=== PATIENT | female | born 1970 | race Caucasian/White ===

== ENCOUNTER 2019-10-31 08:49 | Outpatient (CLI) | payer BC, SELFPAY ==
--- NOTE | 2019-10-31 | US_ITS ---
WS: [id number] RIGHT UPPER QUADRANT ULTRASOUND HISTORY: RIGHT UPPER QUADRANT PAIN COMPARISON: None available. Liver: 15.5 cm in length. Normal size and echogenicity with no intrahepatic dilatation. No mass. Gallbladder: Normally distended gallbladder with no stones or wall thickening. CBD: 1.8 mm Pancreas: Normal size and echogenicity. Right kidney: 9.3 cm in length. Normal echogenicity with no mass or hydronephrosis. Aorta and IVC: Unremarkable. No ascites. US/US abdomen limited [id number] IMPRESSION: Normal RIGHT upper quadrant ultrasound.
== END 2019-10-31 08:50 | disposition home or self-care (01) ==
LOC: RADWPI 09:33
PROVIDERS: PCP Family Medicine; Visit Provider Nurse Practitioner Family
DX: Z76.89 Persons encountering health services in other specified circumstances (principal)

== ENCOUNTER 2019-11-21 07:48 | Outpatient (CLI) | payer BC, SELFPAY ==
--- NOTE | 2019-11-21 07:54 | NM_ITS ---
WS: [id number] NM hepatobiliary w phar* [id number] REASON FOR EXAM: RUQ PAIN TECHNICAL: 8.1 mCi technetium 99m mebrofenin IV. FINDINGS: The gallbladder visualizes well at 20 minutes. Patient was given 8 ounces of ensure plus the ejection fraction was 63%. NM/NM hepatobiliary w phar* [id number] IMPRESSION: Normal appearance of the gallbladder Normal ejection fraction
== END 2019-11-21 07:49 | disposition home or self-care (01) ==
LOC: NM 07:52
PROVIDERS: Family Provider Family Medicine; PCP Family Medicine; Visit Provider Nurse Practitioner Family
DX: R10.11 Right upper quadrant pain (principal)
CPT/HCPCS: 78227; A9537

== ENCOUNTER → 2020-06-12 09:23 | Outpatient (BNVA) | payer BC, SELFPAY | PROVIDERS: Family Provider Family Medicine; PCP Family Medicine; Visit Provider Obstetrics & Gynecology | DX: Z01.419 Encounter for gynecological examination (general) (routine) without abnormal findings (principal) | CPT/HCPCS: 80061; 83036; 84443 ==

== ENCOUNTER → 2020-06-25 09:20 | Outpatient (BNVA) | payer BC, SELFPAY | PROVIDERS: Family Provider Family Medicine; PCP Family Medicine; Visit Provider Obstetrics & Gynecology | DX: N93.9 Abnormal uterine and vaginal bleeding, unspecified (principal); Z78.0 Asymptomatic menopausal state | CPT/HCPCS: 76830; 83001; 84450 ==

== ENCOUNTER → 2021-10-13 11:33 | Outpatient (BNVA) | payer BC, SELFPAY | PROVIDERS: PCP Family Medicine; Visit Provider Obstetrics & Gynecology | DX: Z12.4 Encounter for screening for malignant neoplasm of cervix (principal) | CPT/HCPCS: 87624 ==

== ENCOUNTER 2022-02-18 11:06 | Outpatient (CLI) | payer BC, SELFPAY ==
--- NOTE | 2022-02-18 11:16 | MM_ITS ---
WS: [id number] BILATERAL 3D TOMOSYNTHESIS DIGITAL SCREENING MAMMOGRAPHY WITH CAD CLINICAL INFORMATION: Z12.39 - Encounter for other screening for malignant neop... HISTORY: Screening mammogram. No current complaints. COMPARISON: November 16, 2019 and TECHNIQUE: Bilateral CC and MLO views. FINDINGS: Bilateral breast implants appear intact and unchanged. Scattered fibroglandular densities bilaterally. A few incidental punctate calcifications. Nodular chuckie ast tissue subareolar LEFT breast appears unchanged over multiple prior examinations. No suspicious f ocal mass, asymmetry, calcifications, or architectural distortion. No evidence of malignancy. MM/[id number] IMPRESSION: BI-RADS: 2-Benign FOLLOW UP: 1 Year Follow-up Recommend return to annual screening mammography.
== END 2022-02-18 11:07 | disposition home or self-care (01) ==
PROVIDERS: PCP Family Medicine; Visit Provider Obstetrics & Gynecology
DX: Z12.39 Encounter for other screening for malignant neoplasm of breast (principal); Z12.31 Encounter for screening mammogram for malignant neoplasm of breast
CPT/HCPCS: 77063; 77067

== ENCOUNTER → 2022-10-16 09:12 | Outpatient (BNVA) | payer BC, SELFPAY | PROVIDERS: PCP Family Medicine; Visit Provider Obstetrics & Gynecology | DX: N95.0 Postmenopausal bleeding (principal) | CPT/HCPCS: 88305 ==

== ENCOUNTER → 2022-11-02 11:16 | Outpatient (BNVA) | payer BC, SELFPAY | PROVIDERS: PCP Family Medicine; Visit Provider Obstetrics & Gynecology | DX: N95.0 Postmenopausal bleeding (principal) | CPT/HCPCS: 76830 ==

== ENCOUNTER 2022-11-12 06:41 | Day surgery (SDC) | payer BC, SELFPAY ==
[2022-11-11 08:51] VITALS: BMI 21.1
--- NOTE | 2022-11-11 09:04 | ANES.PREANE2 ---
Pre-Anesthetic Assessment Height/Weight: Height 1.7 m Weight 61.235 kg Operation Date: 11/12/22 08:00 Proposed Procedures p Hysteroscopy, dilation and curettage with Myosure [id number], N93.9,N95.0(Not Applicable) - Chito Phillips MD s Dilation And Curettage (D&C)(Not Applicable) - Chito Phillips MD Familial anesthetic complications: Epidural (passed out d/t bradycardia) Social No alcohol and No tobacco Exam alert, oriented x 3, clear to auscultation bilaterally and regular rate & rhythm Airway Mallampati: Class II Dentition: full Pulmonary None reported CV/HEM None reported None reported Hepatic None reported GI None reported Metabolic Thyroid Disease [facility] None reported Neuropsych None reported Anesthetic Plan ASA status: 2 Anesthesia: General Risk of > 500 ml blood loss (7ml/kg in children): No Medications/Allergies Home Medications Medication Instructions Recorded Confirmed Last Taken Type montelukast 10 mg tablet 10 mg PO DAILY 06/12/20 11/11/22 11/11/22 History (Singulair) multivitamin 1 cap PO DAILY 06/12/20 11/11/22 11/11/22 History pseudoephedrine HCl 30 mg tablet 30 mg PO Q6H PRN Allergy Symptoms 10/13/21 11/11/22 11/11/22 History estradiol 50 mg implant pellet 225 mg SUBCUT 10/16/22 11/06/22 Unknown History levothyroxine 75 mcg tablet 90 mcg PO DAILY 10/16/22 11/11/22 11/11/22 History (Synthroid) progesterone micronized 200 mg 200 mg PO DAILY 10/16/22 11/11/22 Unknown History capsule spironolactone 100 mg tablet 100 mg PO DAILY 10/16/22 11/11/22 11/11/22 History testosterone 100 mg implant pellet 190 mg SUBCUT 10/16/22 11/06/22 Unknown History Allergies Allergy/AdvReac Type Severity Reaction Status Date / Time cephalexin [From Keflex] Allergy breathing Verified 10/16/22 08:11 issues Penicillins Allergy breathing Verified 10/16/22 08:11 issues Sulfa (Sulfonamide Allergy Rash/facial Verified 10/16/22 08:11 Antibiotics) swelling [facility] Anesthesia Medical History No pertinent past medical history Denies diabetes, asthma, hypertension, seizures, DVT/PE PCP: Dr. Parham Surgical History S/P breast augmentation Breast implants in 2008 S/P exploratory laparotomy In her early 20s patient states that she had nonspecific lower abdominal symptoms including nausea, vomiting, diarrhea about 3 months after starting a new control pill. She was admitted in the hospital and transferred to [place] and at that time exploratory abdominal surgery via Pfannenstiel incision was done and all they did was take biopsies of her intestine which were benign. Her symptoms without be secondary to control and once she stopped them she was fine. S/P eye surgery Done in June 2018 for visual improvement S/P foot surgery, left Removal of neuroma-2009 S/P LEEP Conization in her mid 30s for abnormal Pap smears. S/P tubal ligation via umbilical incision in 2007 Family History Grandfather Heart disease maternal and paternal Stroke maternal Grandmother Heart disease maternal Thyroid condition maternal Stroke maternal Breast cancer Paternal grandmother had female cancer of some kind-unsure if it was ovarian in origin however it spread to her breasts. This was in her late 60s. Father Heart disease Diabetes Hyperlipidemia Hypertension Sister Thyroid condition Mother Thyroid condition Denies family history of Colon cancer Ovarian cancer Uterine cancer Data Anesthesia Cardiac Studies: No Data to Display
[2022-11-12] VITALS (11 sets, daily range): BP systolic 114–131; BP diastolic 52–77; PULSE 62–73; RESP 16–27; TEMP 36.4–36.9; O2SAT 64–99
[2022-11-12 07:50] LABS: Basophils # 0.1 10^3/uL (0.0-0.1); Basophils % 0.8 %; Eosinophils # 0.2 10^3/uL (0.0-0.8); Eosinophils % 2.6 %; Hematocrit 44.3 % (37.0-47.0); Hemoglobin 14.8 g/dL (11.5-15.3); Lymphocytes # 1.8 10^3/uL (0.8-4.8); Lymphocytes % 27.8 %; Mean Corpuscular HGB Conc 33.4 g/dL (30.0-36.0); Mean Corpuscular Hemoglobin 28.6 pg (28.0-34.0); Mean Corpuscular Volume 85.7 fl (81-99); Monocytes # 0.5 10^3/uL (0.2-0.9); Monocytes % 7.4 %; Neutrophils # 4.03 10^3/uL (1.8-7.7); Neutrophils % 61.2 %; Nucleated Red Blood Cells % 0 %; Platelet Count 244 10^3/cmm (130-400); Red Blood Count 5.17 10^6/uL (4.1-5.3); Red Cell Distribution Width 12.2 % (12.1-15.1); White Blood Count 6.6 10^3/uL (4.0-10.0)
--- NOTE | 2022-11-12 07:51 | P.ANESUD_ITS ---
Pre-Anesthetic Update Pre-Anesthetic Assessment: Date of Surgery/Procedure: 11/12/22 Preop Smitha gnosis: DUB Proposed Procedure: Operation Date: 11/12/22 08:00 Proposed Procedures p Hysteroscopy, dilation and curettage with Myosure [id number], N93.9,N95.0(Not Applicable) - Chito Phillips MD s Dilation And Curettage (D&C)(Not Applicable) - Chito Phillips MD Any changes to Pre-Anesthetic Assessment?: No Last Intake: Intake Last Liquid Date 11/11/22 Last Liquid Time 21:00 Last Solid Date 11/11/22 Last Solid Time 15:00 Last Intake: 21:00 Labs Last 48hrs: Short CBC 11/12/22 Range/Units 07:30 WBC 6.6 (4.0-10.0) 10^3/ uL Hgb 14.8 (11.5-15.3) g/dL Hct 44.3 (37.0-47.0) % MCV 85.7 (81-99) fl Plt Count 244 (130-400) 10^3/c mm Neut % (Auto) 61.2 % Neut # (Auto) 4.03 (1.8-7.7) 10^3/u L Vitals: Temperature 97.6 F 11/12/22 07:02 Temperature Source Temporal Artery S can 11/12/22 07:02 Pulse Rate 72 11/12/22 07:02 Respiratory Rate 18 11/12/22 07:02 Blood Pressure 118/69 11/12/22 07:02 Blood Pressure Vikik n 85 11/12/22 07:02 Pulse Oximetry 98 11/12/22 07:02 Oxygen Delivery Me thod 11/12/22 07:04 Exam: Pre-Anes Outpt Exam: alert, oriented x 3, clear to auscultation bilaterally and regular rate & rhythm Cardiac Studies: No Data to Display
[2022-11-12] MEDS: sodium chloride 0.9% 1,000 ML 30 ML IV (07:52)
--- NOTE | 2022-11-12 08:02 | W.PM.OPSUD ---
Surgery/Procedure H&P Update DATE OF PROCEDURE: November 12, 2022 DATE H&P PERFORMED: 11/06/22 H&P UPDATE INFORMATION: I have reviewed H&P completed within last 30 days, I have examined patient prior to procedure and No changes to prior documentation PREOP DIAGNOSIS: DUB PLANNED PROCEDURE: Operation Date: 11/12/22 08:00 Proposed Procedures p Hysteroscopy, dilation and curettage with Myosure [id number], N93.9,N95.0(Not Applicable) - Chito Phillips MD s Dilation And Curettage (D&C)(Not Applicable) - Chito Phillips MD
[2022-11-12 08:08] LABS: Add Urine Microscopic? YES; Bilirubin Urine Neg (Negative); Blood Urine 2+ (Negative); Glucose Urine UA Norm (Normal); Ketones Urine 1+ (Negative); Leukocyte Esterase Urine Negative (Negative); Nitrate Urine Negative (Negative); Protein Urine Neg (Negative); Urine Appearance Hazy (CLEAR); Urine Color Yellow (Yellow); Urobilinogen Urine Norm (Negative); pH Urine 5 (5-7)
[2022-11-12 08:12] LABS: Alanine Aminotransferase 15 U/L (0-33); Albumin Level 3.8 g/dL (3.5-5.2); Alkaline Phosphatase 49 U/L (35-105); Blood Urea Nitrogen 9 mg/dL (6-20); Carbon Dioxide 24 mmol/L (22-29); Chloride 100 mmol/L (98-107); Globulin 2.9 g/dL (1.3-4.6); Glomerular Filtration Rate 75.6 mL/min (90-130); Glucose 96 mg/dL (65-115); Osmolality Calculated 279 mOsm/kg (285-295); Sodium 135 mmol/L (136-145); Total Bilirubin 1.1 mg/dL (0.15-1.2); Total Protein 6.7 g/dL (6.6-8.7)
[2022-11-12 08:13] LABS: Anion Gap 15.3 (5-19); Aspartate Amino Transferase 21 U/L (0-32); Potassium 4.3 mmol/L (3.5-5.1)
[2022-11-12 08:17] LABS: OR HCG Qualitative Urine Negative (Negative)
[2022-11-12 08:34] LABS: Bacteria Urine TRACE /hpf; Mucus Urine 1+ /hpf; RBC Urine 0-4 /hpf (0-2)
[2022-11-12 08:35] LABS: Add Urine Culture? No
--- NOTE | 2022-11-12 08:49 | PM.OP ---
Operative Report Date of procedure: November 12, 2022 Pre-op diagnosis: Preop Diagnosis DUB Post-op diagnosis: Postmenopausal bleeding Post-op findings: Irregular atrophic endometrium Procedure done: Hysteroscopy with dilation and curettage via MyoSure Specimens removed/disposition: Endometrial curettings Surgeon: Chito Phillips MD Estimated blood loss (mL): 5 IV fluids (mL): 200 Complications: None Findings: Irregular atrophic endometrium Procedure: After informed consent, the risks included but were not limited to bleeding, infection, injury to internal organs. The patient was counseled on a possible laparotomy and on the potential need for hysterectomy. The patient expressed understanding of the risks involved, all questions were answered, and the patient consented to the procedure. The patient was taken to the operating room where general anesthesia was administered. She was placed in the dorsal lithotomy position and prepped and draped in sterile fashion. A time out procedure was performed. The patient was examined under anesthesia and found to have a normal uterus with normal adnexa. A sterile weight speculum was placed in the vagina. The uterus was then gently sounded to 8 cm, and the cervix was dilated. The 0 degrees MyoSure hysteroscope was advanced gently to the uterine fundus while visualizing the monitor. Survey of the uterine cavity showed: Atrophic endometrium, the fundus shows atrophic endometrium; left ostium was visualized, and lateral wall with atrophic endometrium; right ostium visualized, and lateral wall with atrophic endometrium; anterior and posterior vazquez are with atrophic endometrium; endocervical canal is normal. The MyoSure device was advanced and the direct visualization the atrophic endometrium was morcellated without complication. At the end of morcellation the fluid deficit was 265 mL and was estimated at approximately 150 mL were on the floor. There was minimal bleeding noted and the tenaculum removed with goad hemostasis noted. The patient tolerated the procedure well. The patient was taken to the recovery area in stable condition.
--- NOTE | 2022-11-12 09:06 | PC.NURSE ---
Awake. Oral airway removed
--- NOTE | 2022-11-12 09:57 | PC.NURSE ---
Call placed to Dr. Phillips for update for patient and family. Update given
--- NOTE | 2022-11-12 13:31 | ANE.PACU2 ---
Inpatient post-anesthesia follow up: Airway intact: Yes Vital signs: Temperature 98.4 F Pulse Rate 64 Respiratory Rate 18 Blood Pressure 131/77 Pulse Oximetry 64 Oxygen Delivery Me thod Room Air Oxygen Flow Rate 8 Fraction of Inspir ed Oxygen Hydration adequate: Yes Nausea and vomiting: No Pain level: 1 Mental status: Baseline
== END 2022-11-12 10:22 | disposition home or self-care (01) ==
PROVIDERS: PCP Family Medicine; Visit Provider Obstetrics & Gynecology
PROC: 0UDB8ZZ Extraction of Endometrium, Via Natural or Artificial Opening Endoscopic (ICD-10-PCS; CPT 58558; principal; 2022-11-12 08:00)
PROC: (CPT 58120; 2022-11-12 08:00)
DX: N93.9 Abnormal uterine and vaginal bleeding, unspecified (principal)
CPT/HCPCS: 58558; 80053; 81001; 84703; 85025; 88305; J1100; J1200; J2250; J2370; J2405; J2704; J3010; J7030

== ENCOUNTER 2024-04-12 13:10 | Outpatient (CLI) | payer OTHER, SELFPAY ==
--- NOTE | 2024-04-12 13:30 | MM_ITS ---
WS: [id number] BILATERAL 3D TOMOSYNTHESIS DIGITAL SCREENING MAMMOGRAPHY WITH CAD CLINICAL INFORMATION: Z12.31 - Encounter for screening mammogram for malignant ... HISTORY: Screening mammogram. No current complaints. COMPARISON: 2021 and 2019 TECHNIQUE: Bilateral CC and MLO views. FINDINGS: Stable bilateral breast implants. The breasts are composed of heterogeneous fibroglandular density tissue, which can limit the detectio n of small underlying mass lesions. No suspicious mass, asymmetry, calcifications, or architectural d istortion. No evidence of malignancy. Tiny incidental punctate calcification RIGHT breast. MM/[id number] IMPRESSION: BI-RADS: 2-Benign FOLLOW UP: 1 Year Follow-up Recommend return to annual screening mammography.
== END 2024-04-12 13:11 | disposition home or self-care (01) ==
LOC: RAD 13:10
PROVIDERS: PCP Family Medicine; Visit Provider Obstetrics & Gynecology
DX: Z12.31 Encounter for screening mammogram for malignant neoplasm of breast (principal); R92.333 Mammographic heterogeneous density, bilateral breasts; R92.323 Mammographic fibroglandular density, bilateral breasts
CPT/HCPCS: 77063; 77067

== ENCOUNTER → 2025-06-14 12:01 | Outpatient (BNVA) | payer OTHER, SELFPAY | PROVIDERS: PCP Family Medicine; Visit Provider Obstetrics & Gynecology | DX: Z01.419 Encounter for gynecological examination (general) (routine) without abnormal findings (principal) | CPT/HCPCS: 87624 ==